=== PATIENT | female | born 1945 | race Hispanic/Latino ===

== ENCOUNTER 2019-09-23 22:49 | Inpatient (IN) | payer MEDICARE ==
[2019-09-23] MEDS ORDERED: THIAMINE 100 MG, FOLIC ACID 1 MG, MULTIPLE VITAMIN INJ, ADULT 10 ML in SODIUM CHLORIDE ... IV ONE (23:03)
[2019-09-23] MEDS ORDERED: KETOROLAC 30 MG/1 ML INJ IV ONE (23:05)
[2019-09-23] MEDS ORDERED: FAMOTIDINE 20 MG/2 ML INJ IV ONE (23:05)
--- NOTE | 2019-09-23 23:19 | Emergency Department Report ---
ED Fall HPI - General Chief Complaint: Neck Pain/Injury Stated Complaint: FALL Time Seen by Provider: 09/23/19 22:54 Source: patient, EMS Mode of arrival: Stretcher Limitations: Other (EtOH) - History of Present Illness Initial Comments: 74-year-old female with history of degenerative bone disease presents to the hospital with fall injury. Patient admits to alcohol all day since 2pm. She got out of the car, tripped and fell landing on right side. Patient is unsure if she passed out. She complains of neck pain and right shoulder pain that is moderate in intensity, constant, worse with palpation and movement. Pt has right shoulder pain x 3 days. It is unclear if there was an injury prior to today. Pt denies daily etoh intake. - Related Data Previous Rx's Medication Instructions Recorded Last Taken Type Ibuprofen [Motrin] 600 mg PO Q8H PRN #20 tablet 09/24/19 Unknown Rx Allergies Allergy/AdvReac Type Severity Reaction Status Date / Time codeine Allergy Severe Anaphylaxis Verified 09/24/19 02:27 propoxyphene [From Darvon] Allergy Severe Anaphylaxis Verified 09/24/19 02:28 lidocaine Allergy Anaphylaxis Verified 09/24/19 02:28 ED Review of Systems ROS: Stated complaint: FALL Other details as noted in HPI Comment: All other systems reviewed and negative ED Past Medical Hx - Medications Home Medications: Home Medications Medication Instructions Recorded Confirmed Last Taken Type Ibuprofen [Motrin] 600 mg PO Q8H PRN #20 tablet 09/24/19 Unknown Rx ED Physical Exam - General Limitations: Other - Other Other exam information: General: No acute distress Head: Atraumatic Eyes: normal appearance ENT: Moist mucous membranes Neck: Normal appearance, diffuse tenderness, intoxicated c-collar continued until imaging Chest: Clear to auscultation bilaterally, right-sided chest wall tenderness without crepitus CV: Regular rate and rhythm Abdomen: Soft, normal bowel sounds, nontender, nondistended, no rebound or guarding Back: Normal inspection, diffuse lumbar tenderness including midline. Extremity: No pelvic pain. Full range of motion of bilateral hips, knee, and ankle. Positive pain to right shoulder area with limited movement secondary to pain. 2+ radial pulse and intact distal sensation. Right wrist pain with palpation, no deformity Neuro: Alert O x 3, no facial asymmetry, speech clear but mildly slurred due to etoh, no gross motor sensory deficit Psych: Appropriate behavior, etoh intoxication Skin: No rash ED Course Vital Signs 09/23/19 09/24/19 09/24/19 23:05 00:28 01:44 Temperature 98.2 F Pulse Rate 71 68 64 Pulse Rate [ Intra-Procedure ] Pulse Rate [ Post-Procedure] Pulse Rate [Pre -Procedure] Respiratory 17 15 16 Rate Respiratory Rate [Intra- Procedure] Respiratory Rate [Post- Procedure] Respiratory Rate [Pre- Procedure] Blood Pressure [Intra- Procedure] Blood Pressure 149/54 115/52 133/60 [Left] Blood Pressure [Post-Procedure ] Blood Pressure [Pre-Procedure] O2 Sat by Pulse 98 98 98 Oximetry O2 Sat by Pulse Oximetry [ Intra-Procedure ] O2 Sat by Pulse Oximetry [Post -Procedure] O2 Sat by Pulse Oximetry [Pre- Procedure] 09/24/19 09/24/19 09/24/19 03:05 03:08 03:15 Temperature Pulse Rate 76 Pulse Rate [ 61 Intra-Procedure ] Pulse Rate [ 78 Post-Procedure] Pulse Rate [Pre 76 -Procedure] Respiratory 12 Rate Respiratory 16 Rate [Intra- Procedure] Respiratory 13 Rate [Post- Procedure] Respiratory 12 Rate [Pre- Procedure] Blood Pressure 179/77 [Intra- Procedure] Blood Pressure 141/63 [Left] Blood Pressure 166/74 [Post-Procedure ] Blood Pressure 141/63 [Pre-Procedure] O2 Sat by Pulse 100 Oximetry O2 Sat by Pulse 100 Oximetry [ Intra-Procedure ] O2 Sat by Pulse 100 Oximetry [Post -Procedure] O2 Sat by Pulse 100 Oximetry [Pre- Procedure] 09/24/19 09/24/19 09/24/19 03:25 03:40 04:30 Temperature Pulse Rate 61 Pulse Rate [ Intra-Procedure ] Pulse Rate [ 79 67 Post-Procedure] Pulse Rate [Pre -Procedure] Respiratory 14 Rate Respiratory Rate [Intra- Procedure] Respiratory 18 15 Rate [Post- Procedure] Respiratory Rate [Pre- Procedure] Blood Pressure [Intra- Procedure] Blood Pressure 131/61 [Left] Blood Pressure 136/59 163/58 [Post-Procedure ] Blood Pressure [Pre-Procedure] O2 Sat by Pulse 99 Oximetry O2 Sat by Pulse Oximetry [ Intra-Procedure ] O2 Sat by Pulse 100 100 Oximetry [Post -Procedure] O2 Sat by Pulse Oximetry [Pre- Procedure] - Consultations Consultation #1: 09/24/19 02:[address] surgeon [address] Reynoso who recommends improving fracture segment alignment then placed in an immobilizer. Patient will need outpatient follow-up for possible surgery. ED Medical Decision Making - Lab Data Result diagrams: 09/23/19 23:09 09/23/19 23:09 Lab Results 09/23/19 09/23/19 09/23/19 Range/Units 23:09 23:09 23:09 WBC 8.7 (4.5-11.0) K/mm3 RBC 4.72 (3.65-5.03) M/mm3 Hgb 15.6 H (10.1-14.3) gm/dl Hct 47.5 H (30.3-42.9) % MCV 101 H (79-97) fl MCH 33 H (28-32) pg MCHC 33 (30-34) % RDW 13.6 (13.2-15.2) % Plt Count 255 (140-440) K/mm3 Lymph % (Auto) 32.6 (13.4-35.0) % [place] % (Auto) 5.6 (0.0-7.3) % Eos % (Auto) 0.3 (0.0-4.3) % Baso % (Auto) 0.5 (0.0-1.8) % Lymph # 2.8 (1.2-5.4) K/mm3 [place] # 0.5 (0.0-0.8) K/mm3 Eos # 0.0 (0.0-0.4) K/mm3 Baso # 0.0 (0.0-0.1) K/mm3 Seg Neutrophils % 61.0 (40.0-70.0) % Seg Neutrophils # 5.3 (1.8-7.7) K/mm3 Sodium 134 L (137-145) mmol/L Potassium 3.9 (3.6-5.0) mmol/L Chloride 100.5 (98-107) mmol/L Carbon Dioxide 15 L (22-30) mmol/L Anion Gap 22 mmol/L BUN 9 (7-17) mg/dL Creatinine 0.8 (0.7-1.2) mg/dL Estimated GFR > 60 ml/min BUN/Creatinine Ratio 11 % Glucose 118 H (65-100) mg/dL POC Glucose (70-105) Calcium 9.3 (8.4-10.2) mg/dL Magnesium 2.30 (1.7-2.3) mg/dL Total Bilirubin 0.20 (0.1-1.2) mg/dL AST 32 (5-40) units/L ALT 16 (7-56) units/L Alkaline Phosphatase 82 (35-129) units/L Total Protein 8.5 H (6.3-8.2) g/dL Albumin 4.6 (3.9-5) g/dL Albumin/Globulin Ratio 1.2 % Plasma/Serum Alcohol 0.30 H (0-0.07) % 09/23/ Range/Units 23:21 WBC (4.5-11.0) K/mm3 RBC (3.65-5.03) M/mm3 Hgb (10.1-14.3) gm/dl Hct (30.3-42.9) % MCV (79-97) fl MCH (28-32) pg MCHC (30-34) % RDW (13.2-15.2) % Plt Count (140-440) K/mm3 Lymph % (Auto) (13.4-35.0) % [place] % (Auto) (0.0-7.3) % Eos % (Auto) (0.0-4.3) % Baso % (Auto) (0.0-1.8) % Lymph # (1.2-5.4) K/mm3 [place] # (0.0-0.8) K/mm3 Eos # (0.0-0.4) K/mm3 Baso # (0.0-0.1) K/mm3 Seg Neutrophils % (40.0-70.0) % Seg Neutrophils # (1.8-7.7) K/mm3 Sodium (137-145) mmol/L Potassium (3.6-5.0) mmol/L Chloride (98-107) mmol/L Carbon Dioxide (22-30) mmol/L Anion Gap mmol/L BUN (7-17) mg/dL Creatinine (0.7-1.2) mg/dL Estimated GFR ml/min BUN/Creatinine Ratio % Glucose (65-100) mg/dL POC Glucose 123 H (70-105) Calcium (8.4-10.2) mg/dL Magnesium (1.7-2.3) mg/dL Total Bilirubin (0.1-1.2) mg/dL AST (5-40) units/L ALT (7-56) units/L Alkaline Phosphatase (35-129) units/L Total Protein (6.3-8.2) g/dL Albumin (3.9-5) g/dL Albumin/Globulin Ratio % Plasma/Serum Alcohol (0-0.07) % - Radiology Data Radiology results: report reviewed EXAMINATION: Right shoulder radiograph, one view, 09/23/2019 CLINICAL INFORMATION: Right shoulder pain after fall COMPARISON: None. FINDINGS: There is a displaced angulated fracture through the right humeral neck. IMPRESSION: Displaced right humeral neck fracture. Examination: CT of the head without contrast Clinical information: Fall. Trauma. Comparison: None Technical: Multiple axial CT images of the head were obtained without intravenous contrast. Sagittal and coronal reformats were obtained. All CTs at this facility utilize dose reduction techniques including automated exposure control, iterative reconstruction and weight based dosing when appropriate to reduce patient radiation dose to as low as reasonable achievable. Findings: There is no CT evidence of acute intracranial hemorrhage or large territorial infarct. Confluent regions of hypodensity are noted within the periventricular white matter. The ventricular system is normal in size. No extra-axial fluid collection is identified. Evaluation of the calvarium demonstrates no evidence of acute calvarial abnormality. There is complete op acification of the left maxillary sinus. Impression: 1. No CT evidence of acute intracranial process. 2. Changes associated with chronic small vessel ischemic disease. Examination: CT of the cervical spine without contrast, 09/24/2019 Clinical information: Fall. Trauma. Comparison: None Technical: Multiple axial CT images of the cervical spine were obtained without intravenous contrast. Sagittal and coronal reformats were obtained. All CTs at this facility utilize dose reduction techniques including automated exposure control, iterative reconstruction and weight based dosing when appropriate to reduce patient radiation dose to as low as reasonable achievable. Findings: There is normal alignment of the cervical vertebral bodies. Mild to moderate multilevel bony degenerative change is noted. There is degenerative space narrowing at the C5-C6 level. Vertebral body height appears well maintained. Limited imaging of the lung apices are clear. Impression: 1. No CT evidence of acute bony abnormality of the cervical spine. 2. Mild to moderate bony degenerative change. CT chest without contrast, 09/24/2019 Clinical information: Chest pain after fall. Right rib pain. Technical: Multiple axial CT images of the chest were acquired without intravenous contrast. Sagittal and coronal reformats were obtained. All CTs at this facility utilized dose reduction techniques including automated exposure control, iterative reconstruction and weight based dosing w hen appropriate to reduce patient radiation dose to as low as reasonably achievable. Comparison: None Findings: The heart is normal in size. The thoracic aorta appears normal in caliber with scattered atherosclerotic calcifications. Evaluation of the lung parenchyma demonstrates no focal airspace consolidation, pleural effusion or pneumothorax. Limited imaging of the upper abdomen demonstrates no evidence of acute abnormality. There has been previous cholecystectomy. Evaluation of bony structures demonstrates a comminuted fracture through the right humeral neck, incompletely visualized. Evaluation of soft tissue structures demonstrates no acute soft tissue abnormality. Impression: 1. Comminuted right humeral neck fracture Examination: CT of the lumbar spine without contrast, 09/24/2019 Clinical information: Fall. Comparison: None Technical: Multiple axial CT images of the lumbar spine were obtained without intravenous contrast. Sagittal and coronal reformats were obtained. All CTs at this facility utilize dose reduction techniques including automated exposure control, iterative reconstruction and weight based dosing when appropriate to reduce patient radiation dose to as low as reasonable achievable. Findings: There is normal alignment of the lumbar vertebral bodies. There is mild compression deformity of the L5 vertebral body. This is age indeterminate. The bilateral SI joints appear grossly normal. Limited visualization of abdominopelvic contents demonstrates no definitive evidence of acute abnormality. Impression: 1. Minimal compression deformity of the L5 vertebral body. Please correlate with patient's clinical circumstances and point tenderness, given that the chronicity of this finding is indeterminate. EXAMINATION: Right shoulder radiograph, one view, 09/24/2019 CLINICAL INFORMATION: Right shoulder fracture. Post reduction evaluation. COMPARISON: Right shoulder radiograph, 09/23/2019 FINDINGS: There has been moderate interval reduction of right humeral neck fracture with fracture components projecting in a more anatomic alignment. EXAMINATION: Right wrist radiograph, one view, 09/24/2019 CLINICAL INFORMATION: History of fall. Trauma. COMPARISON: Right shoulder radiograph, 09/23/2019 FINDINGS: Evaluation is limited due to limited range of motion. One view of the left wrist demonstrates no evidence of acute bony fracture or focal soft tissue swelling. - Medical Decision Making lumbar fxt with unknown chronicity Humerus fracture with adequate reduction of fracture segment in the ED. Case discussed with orthopedic surgeon Patient placed in shoulder immobilizer and outpatient referral to orthopedic will be provided - Differential Diagnosis fxt, contusion, sprain Critical Care Time: No Critical care attestation.: If time is entered above; I have spent that time in minutes in the direct care of this critically ill patient, excluding procedure time. ED Disposition Clinical Impression: Alcohol intoxication, Compression fracture of L5 vertebra Proximal humerus fracture Qualifiers: Encounter type: initial encounter Fracture type: closed Fracture alignment: displaced Laterality: right Disposition: TO HOME OR SELFCARE Is pt being admited?: No Does the pt Need Aspirin: No Condition: Stable Instructions: Arm Fracture in Adults (ED), Thoracolumbar Fracture (ED), Alcohol Intoxication (ED) Additional Instructions: Take the medication as prescribed. Follow-up with your doctor or doctor/clinic provided. Return if symptoms worsen as indicated by your discharge instructions. Prescriptions: Ibuprofen [Motrin] 600 mg PO Q8H PRN #20 tablet PRN Reason: Pain Referrals: PRIMARY CAREMD [Primary Care Provider] - 3-5 Days LEORA REYNOSO MD [Staff Physician] - 3-5 Days
[2019-09-23 23:39] LABS: Basophils % (Auto) 0.5 % (0.0-1.8); Eosinophils % (Auto) 0.3 % (0.0-4.3); Hematocrit 47.5 % (30.3-42.9); Hemoglobin 15.6 gm/dl (10.1-14.3); Lymphocytes # (Auto) 2.8 K/mm3 (1.2-5.4); Lymphocytes % (Auto) 32.6 % (13.4-35.0); Mean Corpuscular HGB Conc 33 % (30-34); Mean Corpuscular Volume 101 fl (79-97); Monocytes # (Auto) 0.5 K/mm3 (0.0-0.8); Monocytes % (Auto) 5.6 % (0.0-7.3); Platelet Count 255 K/mm3 (140-440); Red Blood Count 4.72 M/mm3 (3.65-5.03); Red Cell Distribution Width 13.6 % (13.2-15.2)
--- NOTE | 2019-09-23 23:50 | XRay Report ---
EXAMINATION: Right shoulder radiograph, one view, 09/23/2019 CLINICAL INFORMATION: Right shoulder pain after fall COMPARISON: None. FINDINGS: There is a displaced angulated fracture through the right humeral neck. IMPRESSION: Displaced right humeral neck fracture. Signer Name: Margie Majano MD Signed: 09/23/2019 11:46 PM Workstation Name: [id number]
[2019-09-24 00:18] LABS: Alanine Aminotransferase 16 units/L (7-56); Albumin 4.6 g/dL (3.9-5); BUN/Creatinine Ratio 11; Blood Urea Nitrogen 9 mg/dL (7-17); Calcium 9.3 mg/dL (8.4-10.2); Hemolysis Index 58
--- NOTE | 2019-09-24 01:41 | Cat Scan Report ---
Examination: CT of the head without contrast Clinical information: Fall. Trauma. Comparison: None Technical: Multiple axial CT images of the head were obtained without intravenous contrast. Sagittal and coronal reformats were obtained. All CTs at this facility utilize dose reduction techniques inc luding automated exposure control, iterative reconstruction and weight based dosing when appropriate to reduce patient radiation dose to as low as reasonable achievable. Findings: There is no CT evidence of acute intracranial hemorrhage or large territorial infarct. Conf luent regions of hypodensity are noted within the periventricular white matter. The ventricular syste m is normal in size. No extra-axial fluid collection is identified. Evaluation of the calvarium demonstrates no evidence of acute calvarial abnormality. There is complet e opacification of the left maxillary sinus. Impression: 1. No CT evidence of acute intracranial process. 2. Changes associated with chronic small vessel ischemic disease. Signer Name: Margie Majano MD Signed: 09/24/2019 1:37 AM Workstation Name: [id number]
--- NOTE | 2019-09-24 01:46 | Cat Scan Report ---
Examination: CT of the cervical spine without contrast, 09/24/2019 Clinical information: Fall. Trauma. Comparison: None Technical: Multiple axial CT images of the cervical spine were obtained without intravenous contrast. Sagittal and coronal reformats were obtained. All CTs at this facility utilize dose reduction techn iques including automated exposure control, iterative reconstruction and weight based dosing when helga ropriate to reduce patient radiation dose to as low as reasonable achievable. Findings: There is normal alignment of the cervical vertebral bodies. Mild to moderate multilevel bony degenera tive change is noted. There is degenerative space narrowing at the C5-C6 level. Vertebral body height appears well maintained. Limited imaging of the lung apices are clear. Impression: 1. No CT evidence of acute bony abnormality of the cervical spine. 2. Mild to moderate bony degenerative change. Signer Name: Margie Majano MD Signed: 09/24/2019 1:42 AM Workstation Name: [id number]
--- NOTE | 2019-09-24 01:50 | Cat Scan Report ---
Examination: CT of the lumbar spine without contrast, 09/24/2019 Clinical information: Fall. Comparison: None Technical: Multiple axial CT images of the lumbar spine were obtained without intravenous contrast. S agittal and coronal reformats were obtained. All CTs at this facility utilize dose reduction techniq ues including automated exposure control, iterative reconstruction and weight based dosing when appro priate to reduce patient radiation dose to as low as reasonable achievable. Findings: There is normal alignment of the lumbar vertebral bodies. There is mild compression deformity of the L5 vertebral body. This is age indeterminate. The bilateral SI joints appear grossly normal. Limited visualization of abdominopelvic contents demonstrates no definitive evidence of acute abnorma lity. Impression: 1. Minimal compression deformity of the L5 vertebral body. Please correlate with patient's clinical circumstances and point tenderness, given that the chronicity of this finding is indeterminate. Signer Name: Margie Majano MD Signed: 09/24/2019 1:45 AM Workstation Name: [id number]
--- NOTE | 2019-09-24 01:54 | Cat Scan Report ---
CT chest without contrast, 09/24/2019 Clinical information: Chest pain after fall. Right rib pain. Technical: Multiple axial CT images of the chest were acquired without intravenous contrast. Sagittal and coronal reformats were obtained. All CTs at this facility utilized dose reduction techniques inc luding automated exposure control, iterative reconstruction and weight based dosing when appropriate to reduce patient radiation dose to as low as reasonably achievable. Comparison: None Findings: The heart is normal in size. The thoracic aorta appears normal in caliber with scattered at herosclerotic calcifications. Evaluation of the lung parenchyma demonstrates no focal airspace consol idation, pleural effusion or pneumothorax. Limited imaging of the upper abdomen demonstrates no evidence of acute abnormality. There has been pr evious cholecystectomy. Evaluation of bony structures demonstrates a comminuted fracture through the right humeral neck, inco mpletely visualized. Evaluation of soft tissue structures demonstrates no acute soft tissue abnormali ty. Impression: 1. Comminuted right humeral neck fracture. Signer Name: Margie Majano MD Signed: 09/24/2019 1:50 AM Workstation Name: [email or web address]
[2019-09-24] MEDS ORDERED: ETOMIDATE 20 MG/10 ML INJ IV ONE (02:40)
--- NOTE | 2019-09-24 03:49 | XRay Report ---
EXAMINATION: Right wrist radiograph, one view, 09/24/2019 CLINICAL INFORMATION: History of fall. Trauma. COMPARISON: Right shoulder radiograph, 09/23/2019 FINDINGS: Evaluation is limited due to limited range of motion. One view of the left wrist demonstrat es no evidence of acute bony fracture or focal soft tissue swelling. Signer Name: Margie Majano MD Signed: 09/24/2019 3:44 AM Workstation Name: [id number]
--- NOTE | 2019-09-24 03:50 | XRay Report ---
EXAMINATION: Right shoulder radiograph, one view, 09/24/2019 CLINICAL INFORMATION: Right shoulder fracture. Post reduction evaluation. COMPARISON: Right shoulder radiograph, 09/23/2019 FINDINGS: There has been moderate interval reduction of right humeral neck fracture with fracture com ponents projecting in a more anatomic alignment. Signer Name: Margie Majano MD Signed: 09/24/2019 3:45 AM Workstation Name: [id number]
[2019-09-24 07:51] LABS: INR 0.95 (0.87-1.13)
[2019-09-24 07:52] LABS: Creatine Kinase MB 2.3 ng/mL (0.0-4.0); Partial Thromboplastin Time 24.9 Sec. (24.2-36.6)
[2019-09-24] MEDS ORDERED: THIAMINE 100 MG, FOLIC ACID 1 MG, MULTIPLE VITAMIN INJ, ADULT 10 ML in SODIUM CHLORIDE ... IV ONE (08:00)
[2019-09-24] MEDS ORDERED: LORazepam 2 MG/ML VIAL ONE (08:12)
--- NOTE | 2019-09-24 08:14 | Emergency Department Report ---
Norma Doc - Documentation Documentation: I saw and examined this 74-year-old female. I've come to the conclusion that s he would be best off admitted. She tells me that she has complete amnesia regarding her fall. She was even unaware that she had a broken shoulder although she was having some discomfort laying on the respective side. She states that she had a syncopal episode about 12 years ago without apparent cause. She has no known history of cardiovascular disease. Physical exam General appearance in no distress, awake alert and oriented 4 HEENT no sclera icterus oral mucosa is moist Neck supple and nontender Cardiovascular S1-S2 regular rate without murmur GI soft nontender no gross distention or organomegaly Musculoskeletal exam fracture of proximal humerus with mild swelling shoulder Neurological exam cranial nerves II-12 are intact no gross motor sensory deficit Skin intact and grossly unremarkable Laboratories reviewed Patient had a CO2 of 15. I added a lactic acid level. He was mildly elevated at 2.1. Blood cultures have been ordered. An EKG has been ordered. Banana bag and additional IV fluids. Impression Lactic acidosis, Alcoholic ketoacidosis Syncope Fracture of the proximal humerus Alcohol abuse and dependency Plan Patient will be admitted observation status to the hospitalist service
[2019-09-24] MEDS ORDERED: ASPIRIN 325 MG TAB PO ONE (08:39)
--- NOTE | 2019-09-24 08:50 | History and Physical Report ---
History of Present Illness Date of examination: 09/24/19 Date of admission: 09/24/19 Chief complaint: Status post fall/injury right shoulder History of present illness: 74-year-old female patient with significant past medical history of degenerative bone disease, chronic alcohol use tripped and fell last night and she was getting out of car and sustained a right shoulder injury. Patient has been taking alcohol the whole of yesterday. Patient does not remember that she lost consciousness At the time of my evaluation patient is alert and awake responding appropriately Patient denies any headache or dizziness Denies chronic alcohol use,Patient workup is consistent with right humerus fracture. Patient's alcohol level is high Past History Past Medical History: No medical history Past Surgical History: Other (hip surgery) Social history: lives with family, smoking, alcohol abuse. denies: prescription drug abuse Family history: hypertension Medications and Allergies Allergies Allergy/AdvReac Type Severity Reaction Status Date / Time codeine Allergy Severe Anaphylaxis Verified 09/24/19 02:27 propoxyphene [From Darvon] Allergy Severe Anaphylaxis Verified 09/24/19 02:28 lidocaine Allergy Anaphylaxis Verified 09/24/19 02:28 Home Medications Medication Instructions Recorded Confirmed Last Taken Type Ibuprofen [Motrin] 600 mg PO Q8H PRN #20 tablet 09/24/19 Unknown Rx Active Meds: Active Medications Thiamine HCl 100 mg/ Folic Acid 1 mg/ Multivitamins/Minerals 10 ml/ Sodium Chloride 1,011.2 mls @ 250 mls/hr IV ONCE ONE Stop: 09/24/19 12:02 Review of Systems Constitutional: no weight loss, no weight gain, no anorexia, no fatigue Ears, nose, mouth and throat: no nasal congestion, no nasal discharge Cardiovascular: lightheadedness, no chest pain, no orthopnea, no palpitations Respiratory: no cough with sputum, no hemoptysis Gastrointestinal: no abdominal pain, no nausea, no vomiting Genitourinary Female: no flank pain, no dysuria Integumentary: no rash, no pruritis Neurological: weakness, other, no numbness, no tingling, no seizures Psychiatric: no anxiety, no depression Endocrine: no cold intolerance, no heat intolerance Hematologic/Lymphatic: no easy bruising, no easy bleeding Allergic/Immunologic: no urticaria, no allergic rhinitis Exam - Constitutional Vitals: Temp Pulse Resp BP Pulse Ox 98.2 F 61 14 131/61 99 09/23/19 23:05 09/24/19 04:30 09/24/19 04:30 09/24/19 04:30 09/24/19 04:30 General appearance: Present: no acute distress, well-nourished - EENT Eyes: Present: PERRL, EOM intact ENT: hearing intact, clear oral mucosa - Neck Neck: Present: supple, normal ROM - Respiratory Respiratory effort: normal Respiratory: bilateral: diminished, negative: rales, rhonchi, wheezing - Cardiovascular Rhythm: regular Heart Sounds: Present: S1 & S2 - Extremities Extremities: No edema, abnormal (right humerus fracture in sling) - Abdominal General gastrointestinal: Present: soft, non-tender, non-distended, normal bowel sounds - Integumentary Integumentary: Present: clear, warm - Musculoskeletal Musculoskeletal: strength equal bilaterally, generalized weakness - Psychiatric Psychiatric: appropriate mood/affect, cooperative - Neurologic Neurologic: CNII-XII intact, moves all extremities Results - Labs CBC & Chem 7: 09/23/19 23:09 09/23/19 23:09 Labs: Abnormal lab results 09/23/19 09/23/19 09/23/19 Range/Units 23:09 23:09 23:09 Hgb 15.6 H (10.1-14.3) gm/dl Hct 47.5 H (30.3-42.9) % MCV 101 H (79-97) fl MCH 33 H (28-32) pg Sodium 134 L (137-145) mmol/L Carbon Dioxide 15 L (22-30) mmol/L Glucose 118 H (65-100) mg/dL POC Glucose (70-105) Lactic Acid (0.7-2.0) mmol/L Total Protein 8.5 H (6.3-8.2) g/dL Plasma/Serum Alcohol 0.30 H (0-0.07) % 09/23/19 09/24/19 Range/Units 23:21 07:13 Hgb (10.1-14.3) gm/dl Hct (30.3-42.9) % MCV (79-97) fl MCH (28-32) pg Sodium (137-145) mmol/L Carbon Dioxide (22-30) mmol/L Glucose (65-100) mg/dL POC Glucose 123 H (70-105) Lactic Acid 2.10 H* (0.7-2.0) mmol/L Total Protein (6.3-8.2) g/dL Plasma/Serum Alcohol (0-0.07) % Assessment and Plan --History of fall; Mechanical fall versus, altered level of consciousness Due to alcohol intoxication, Fall precautions, supportive care --Fractured right humerus; immobilization Pain Medications, orthopedic consult -- lactic acidosis ; resolved --Alcoho l intoxication; IV fluids, thiamine folic acid Strongly advised to quit alcohol intake Patient verbalized understanding --Alcohol withdrawal symptoms; Monitor for joint symptoms Initiate CIWA protocol --DVT prophylaxis; Lovenox Monitor closely and adjust management as needed Plan of care is reviewed for the patient and her nurse Follow-up the evaluation and recommendations
[2019-09-24] MEDS ORDERED: hydrALAZINE 20 MG/1 ML INJ IV PRN (09:30)
[2019-09-24] MEDS ORDERED: ASPIRIN 325 MG TAB ONE (09:31)
[2019-09-24] MEDS: MORPHINE 2 MG/1 ML INJ IV PRN ×2 (11:03→19:15)
[2019-09-24] MEDS: FOLIC ACID 1 MG in SODIUM CHLORIDE 0.9% 50 ML IV SCH (11:04)
[2019-09-24] MEDS: THIAMINE 100 MG in SODIUM CHLORIDE 0.9% 50 ML IV SCH (11:04)
[2019-09-24] MEDS: PANTOPRAZOLE 40 MG INJ IV SCH (11:04)
[2019-09-24] MEDS: ENOXAPARIN 40 MG/0.4 ML INJ SUB-Q SCH (21:27)
[2019-09-24] MEDS: SODIUM CHLORIDE 0.9% 1000 ML 1,000 ML IV SCH (22:43)
[2019-09-25] MEDS: MORPHINE 2 MG/1 ML INJ IV PRN ×4 (02:18→21:52)
[2019-09-25] MEDS: FOLIC ACID 1 MG in SODIUM CHLORIDE 0.9% 50 ML IV SCH (10:30)
[2019-09-25] MEDS: PANTOPRAZOLE 40 MG INJ IV SCH (10:30)
[2019-09-25] MEDS: THIAMINE 100 MG in SODIUM CHLORIDE 0.9% 50 ML IV SCH (11:03)
--- NOTE | 2019-09-25 14:47 | Progress Note ---
Assessment and Plan Assessment and plan: 74-year-old female patient with no significant past medical history was admitted through emergency room with history of fall Noted to have alcohol intoxication and lactic acidosis which resolved, patient s ustained a right humerus fracture, immobilized insulin Pending evaluation by orthopedic surgeon --Fractured right humerus; immobilization Pain Medications, pending orthopedic consult --History of fall; Mechanical fall versus, altered level of consciousness Due to alcohol intoxication, Fall precautions -- lactic acidosis ; resolved --Alcoho l intoxication; IV fluids, thiamine folic acid Strongly advised to quit alcohol intake Patient verbalized understanding --Alcohol withdrawal symptoms; Monitor for withdrawl symptoms Initiate CIWA protocol --DVT prophylaxis; Lovenox Monitor closely and adjust management as needed Follow-up orthopedic evaluation and recommendations Plan of care is reviewed with the patient and her nurse History Interval history: Patient feels slightly better complaints of pain in the right shoulder Pending ortho evaluation vital signs reviewed Hospitalist Physical - Constitutional Vitals: Temp Pulse Resp BP Pulse Ox 98.8 F 69 20 172/57 98 09/25/19 12:57 09/25/19 12:57 09/25/19 12:57 09/25/19 12:57 09/25/19 12:57 General appearance: Present: no acute distress, well-nourished - EENT Eyes: Present: PERRL, EOM intact - Neck Neck: Present: supple, normal ROM - Respiratory Respiratory effort: normal Respiratory: bilateral: diminished, negative: rales, rhonchi, wheezing - Cardiovascular Rhythm: regular Heart Sounds: Present: S1 & S2 - Extremities Extremities: no ischemia, No edema - Abdominal General gastrointestinal: soft, non-tender, non-distended, normal bowel sounds - Integumentary Integumentary: Present: clear, warm - Psychiatric Psychiatric: appropriate mood/affect, cooperative - Neurologic Neurologic: CNII-XII intact, moves all extremities Results - Labs CBC & Chem 7: 09/23/19 23:09 09/23/19 23:09 Labs: Laboratory Last Values WBC 8.7 K/mm3 (4.5-11.0) 09/23/19 23:09 RBC 4.72 M/mm3 (3.65-5.03) 09/23/19 23:09 Hgb 15.6 gm/dl (10.1-14.3) H 09/23/19 23:09 Hct 47.5 % (30.3-42.9) H 09/23/19 23:09 MCV 101 fl (79-97) H 09/23/19 23:09 MCH 33 pg (28-32) H 09/23/19 23:09 MCHC 33 % (30-34) 09/23/19 23:09 RDW 13.6 % (13.2-15.2) 09/23/19 23:09 Plt Count 255 K/mm3 (140-440) 09/23/19 23:09 Lymph % (Auto) 32.6 % (13.4-35.0) 09/23/19 23:09 [place] % (Auto) 5.6 % (0.0-7.3) 09/23/19 23:09 Eos % (Auto) 0.3 % (0.0-4.3) 09/23/19 23:09 Baso % (Auto) 0.5 % (0.0-1.8) 09/23/19 23:09 Lymph # 2.8 K/mm3 (1.2-5.4) 09/23/19 23:09 [place] # 0.5 K/mm3 (0.0-0.8) 09/23/19 23:09 Eos # 0.0 K/mm3 (0.0-0.4) 09/23/19 23:09 Baso # 0.0 K/mm3 (0.0-0.1) 09/23/19 23:09 Seg Neutrophils % 61.0 % (40.0-70.0) 09/23/19 23:09 Seg Neutrophils # 5.3 K/mm3 (1.8-7.7) 09/23/19 23:09 PT 12.6 Sec. (12.2-14.9) 09/24/19 07:13 INR 0.95 (0.87-1.13) 09/24/19 07:13 APTT 24.9 Sec. (24.2-36.6) 09/24/19 07:13 Sodium 134 mmol/L (137-145) L 09/23/19 23:09 Potassium 3.9 mmol/L (3.6-5.0) 09/23/19 23:09 Chloride 100.5 mmol/L (98-107) 09/23/19 23:09 Carbon Dioxide 15 mmol/L (22-30) L 09/23/19 23:09 Anion Gap 22 mmol/L 09/23/19 23:09 BUN 9 mg/dL (7-17) 09/23/19 23:09 Creatinine 0.8 mg/dL (0.7-1.2) 09/23/19 23:09 Estimated GFR > 60 ml/min 09/23/19 23:09 BUN/Creatinine Ratio 11 % 09/23/19 23:09 Glucose 118 mg/dL (65-100) H 09/23/19 23:09 POC Glucose 123 (70-105) H 09/23/19 23:21 Ketones Quantitative Negative (Negative) 09/24/19 07:13 Lactic Acid 1.90 mmol/L (0.7-2.0) 09/24/19 08:11 Calcium 9.3 mg/dL (8.4-10.2) 09/23/19 23:09 Magnesium 1.90 mg/dL (1.7-2.3) 09/24/19 07:13 Total Bilirubin 0.20 mg/dL (0.1-1.2) 09/23/19 23:09 AST 32 units/L (5-40) 09/23/19 23:09 ALT 16 units/L (7-56) 09/23/19 23:09 Alkaline Phosphatase 82 units/L (35-129) 09/23/19 23:09 Ammonia 35.0 umol/L (25-60) 09/24/19 07:13 Total Creatine Kinase 115 units/L (30-135) 09/24/19 07:13 CK-MB (CK-2) 2.3 ng/mL (0.0-4.0) 09/24/19 07:13 CK-MB (CK-2) Rel Index 2.0 (0-4) 09/24/19 07:13 Total Protein 8.5 g/dL (6.3-8.2) H 09/23/19 23:09 Albumin 4.6 g/dL (3.9-5) 09/23/19 23:09 Albumin/Globulin Ratio 1.2 % 09/23/19 23:09 Lipase 39 units/L (13-60) 09/24/19 07:13 Plasma/Serum Alcohol 0.30 % (0-0.07) H 09/23/19 23:09 Active Medications - Current Medications Current Medications: Generic Name Dose Route Start Last Admin Trade Name Freq PRN Reason Stop Dose Admin Enoxaparin Sodium 40 mg 09/24/19 22:00 09/24/19 21:27 Enoxaparin SUB-Q 40 mg QDAY@2200 PRUDENCIO Administration Hydralazine HCl 10 mg 09/24/19 09:30 Apresoline IV Q4H PRN Hypertension Folic Acid 1 mg/ Sodium 50.2 mls @ 200.8 mls/hr 09/24/19 10:00 09/25/19 10:30 Chloride IV 200.8 mls/hr QDAY PRUDENCIO Administration Thiamine HCl 100 mg/ Sodium 51 mls @ 100 mls/hr 09/24/19 10:00 09/25/19 11:03 Chloride IV 100 mls/hr QDAY PRUDENCIO Administration Sodium Chloride 1,000 mls @ 75 mls/hr 09/24/19 15:30 09/24/19 22:43 Nacl 0.9% 1000 Ml IV 75 mls/hr DIRECT PRUDENCIO Administration Morphine Sulfate 2 mg 09/24/19 09:30 09/25/19 14:34 Morphine IV 2 mg Q4H PRN Administration Pain, Moderate (4-6) Pantoprazole Sodium 40 mg 09/24/19 10:00 09/25/19 10:30 Protonix IV 40 mg QDAY PRUDENCIO Administration
--- NOTE | 2019-09-25 14:51 | Consultation ---
History of Present Illness - [facility] Consult date: 09/25/19 Consult reason: fracture History of present illness: 74-year-old female who complains of right shoulder pain and swelling after a fall at home while intoxicated. She was seen in our emergency department where x-rays were obtained revealing a fracture separation right proximal humerus Past History Past Medical History: No medical history Past Surgical History: Other (hip surgery) Social history: lives with family, smoking, alcohol abuse. denies: prescription drug abuse Family history: hypertension Medications and Allergies Allergies Allergy/AdvReac Type Severity Reaction Status Date / Time codeine Allergy Severe Anaphylaxis Verified 09/24/19 02:27 propoxyphene [From Darvon] Allergy Severe Anaphylaxis Verified 09/24/19 02:28 lidocaine Allergy Anaphylaxis Verified 09/24/19 02:28 Home Medications Medication Instructions Recorded Confirmed Last Taken Type Ibuprofen [Motrin] 600 mg PO Q8H PRN #20 tablet 09/24/19 Unknown Rx Active Meds: Active Medications Enoxaparin Sodium (Enoxaparin) 40 mg SUB-Q QDAY@2200 [facility] Last Admin: 09/24/19 21:27 Dose: 40 mg Documented by: Hydralazine HCl (Apresoline) 10 mg IV Q4H PRN PRN Reason: Hypertension Folic Acid 1 mg/ Sodium (Chloride) 50.2 mls @ 200.8 mls/hr IV QDAY [facility] Last Admin: 09/25/19 10:30 Dose: 200.8 mls/hr Documented by: Thiamine HCl 100 mg/ Sodium (Chloride) 51 mls @ 100 mls/hr IV QDAY [facility] Last Admin: 09/25/19 11:03 Dose: 100 mls/hr Documented by: Sodium Chloride (Nacl 0.9% 1000 Ml) 1,000 mls @ 75 mls/hr IV DIRECT [facility] Last Admin: 09/24/19 22:43 Dose: 75 mls/hr Documented by: Morphine Sulfate (Morphine) 2 mg IV Q4H PRN PRN Reason: Pain, Moderate (4-6) Last Admin: 09/25/19 14:34 Dose: 2 mg Documented by: Pantoprazole Sodium (Protonix) 40 mg IV QDAY [facility] Last Admin: 09/25/19 10:30 Dose: 40 mg Documented by: Physical Examination - Physical exam Narrative exam: Significant musculoskeletal findings relates to the right upper extremity hair at the right shoulder she is noted to have moderate swelling there is tenderness on palpation decrease passive and active range of motion distal neurovascular status intact Eyes: PERRL ENT: Positive: clear oral mucosa Respiratory effort: normal Respiratory: bilateral: CTA Rhythm: regular Heart Sounds: Positive: S1 & S2 General gastrointestinal: Positive: soft, non-tender, non-distended, normal bowel sounds Integumentary: clear, warm, dry Neurologic: Positive: CNII-XII intact, moves all extremities, gait normal. Negative: focal deficits - Cervical Spine Neck pain: none Tenderness with palpation: none Full ROM: yes ROM: flexion: normal ROM: extension: normal ROM: rotation right: normal ROM: rotation left: normal ROM: lateral flexion right: normal ROM: lateral flexion left: normal - Lumbar Spine Back pain: none Tenderness with palpation: none Appearance: normal Full ROM: yes ROM: flexion: normal ROM: extension: normal ROM: rotation right: normal ROM: rotation left: normal ROM: lateral flexion right: normal ROM: lateral flexion left: normal Assessment and Plan Displaced right proximal humerus fracture Recommendations- patient can be discharged to home with follow-up in my office next week she will require operative fixation that can be done as an outpatient
--- NOTE | 2019-09-25 15:06 | Cat Scan Report ---
CT upper extrem RT wo con INDICATION: right proximal humerus fracture. TECHNIQUE: CT of the right shoulder without contrast. All CT scans at this location are performed using CT dose reduction for ALARA by means of automated exposure control. COMPARISON: Shoulder radiographs on 09/24/2019. FINDINGS: There is a comminuted fracture of the surgical neck of the right proximal humerus with about one half shaft width anterior displacement of the predominant distal fracture fragment as well as anterior ap ex angulation of the fracture. Multiple fracture pieces also extend into the greater and lesser tuber osities. There is a large quantity humeral joint effusion. There is no appreciable underlying osseous mass lesion. Rotator cuff muscle bulk appears largely normal, although the tendons are not well evaluated. Visualized portions of the right lung are clear. IMPRESSION: 1. Comminuted, displaced and angulated fracture of the surgical neck of the proximal right humerus wi th additional involvement of the greater and lesser tuberosities. Signer Name: Marcelo Hughes MD Signed: 09/25/2019 3:02 PM Workstation Name: [id number]
[2019-09-25] MEDS: ENOXAPARIN 40 MG/0.4 ML INJ SUB-Q SCH (21:52)
[2019-09-25] MEDS: SODIUM CHLORIDE 0.9% 1000 ML 1,000 ML IV SCH (21:53)
[2019-09-26] MEDS: FOLIC ACID 1 MG in SODIUM CHLORIDE 0.9% 50 ML IV SCH (09:20)
[2019-09-26] MEDS: PANTOPRAZOLE 40 MG TAB PO SCH (09:20)
[2019-09-26] MEDS: MORPHINE 2 MG/1 ML INJ IV PRN ×2 (09:40→21:42)
[2019-09-26] MEDS: THIAMINE 100 MG in SODIUM CHLORIDE 0.9% 50 ML IV SCH (09:40)
[2019-09-26] MEDS: SODIUM CHLORIDE 0.9% 1000 ML 1,000 ML IV SCH (16:02)
--- NOTE | 2019-09-26 16:30 | Discharge Summary ---
Providers - Providers Date of Admission: 09/24/19 08:14 Date of discharge: 09/26/19 Attending physician: MARGARITA MORAN 09/24/19 08:52 Consult to Physician [CONS] Routine Comment: called answ. service/ subhash Consulting Provider: LEORA MCKEON Physician Instructions: Reason For Exam: Displaced Rt humeral neck fracture Primary care physician: [employer] Hospitalization Condition: Stable Hospital course: 74-year-old female patient with no significant past medical history was admitted through emergency room with history of fall Noted to have alcohol intoxication and lactic acidosis which resolved, patient sustained a right humerus fracture, immobilized insulin Pending evaluation by orthopedic surgeon --Fractured right humerus; immobilization Pain Medications, pending orthopedic consult --History of fall; Mechanical fall versus, altered level of consciousness Due to alcohol intoxication, Fall precautions -- lactic acidosis ; resolved --Alcoho l intoxication; IV fluids, thiamine folic acid Strongly advised to quit alcohol intake Patient verbalized understanding --Alcohol withdrawal symptoms; Monitor for withdrawl symptoms Initiate CIWA protocol --DVT prophylaxis; Lovenox Monitor closely and adjust management as needed Follow-up orthopedic evaluation and recommendations Plan of care is reviewed with the patient and her nurse Disposition: DC-01 TO HOME OR SELFCARE Exam - Constitutional Vitals: Temp Pulse Resp BP Pulse Ox 98.5 F 75 18 134/46 98 09/26/19 12:53 09/26/19 12:53 09/26/19 12:53 09/26/19 12:53 09/26/19 12:53 Plan Follow up with: MOHAN MENARD MD [Primary Care Provider] - 3-5 Days LEORA MCKEON MD [Staff Physician] - 3-5 Days Prescriptions: Ibuprofen [Motrin] 600 mg PO Q8H PRN #20 tablet PRN Reason: Pain
--- NOTE | 2019-09-26 17:05 | Progress Note ---
Assessment and Plan Delirium Tremens-- Alcohol withdrawal symptoms present [facility] protocol Tremulous Fractured right humerus; immobilization Pain Medications, Orthopedic consult--appreciated For surgery as outpatient or as inpatient if she is not discharged by Saturday. History of fall; Mechanical fall versus, altered level of consciousness Due to alcohol intoxication, Fall precautions Lactic acidosis -resolved Alcohol intoxication; IV fluids, thiamine folic acid Strongly advised to quit alcohol intake Patient verbalized understanding Mental Health consult for Alcohol rehab DVT prophylaxis; Lovenox Monitor closely and adjust management as needed Orthopedic evaluation and recommendations appreciated Humerus Internal fixation hopefully on Saturday. Plan of care is reviewed with the patient and her nurse Subjective Date of service: 09/26/19 Principal diagnosis: Rt Humerus fracture,DT,s ,Etoh Dependence Interval history: 74-year-old female patient with no significant past medical history was admitted through emergency room with history of fall Noted to have alcohol intoxication and lactic acidosis which resolved, patient sustained a right humerus fracture, immobilized . Evaluation by orthopedic surgeon--done Tremulous.And shaking and nervous. - Objective - Constitutional Vitals: Vital Signs - 12hr 09/26/19 09/26/19 09/26/19 07:18 09:22 09:40 Temperature 98.6 F Pulse Rate 63 Pulse Rate [ Apical] Respiratory 18 20 Rate Blood Pressure 133/51 O2 Sat by Pulse 96 99 Oximetry 09/26/19 09/26/19 10:00 12:53 Temperature 98.5 F Pulse Rate 80 75 Pulse Rate [ 61 Apical] Respiratory 18 18 Rate Blood Pressure 134/46 O2 Sat by Pulse 99 98 Oximetry General appearance: Present: mild distress, well-nourished - EENT Eyes: PERRL, EOM intact ENT: hearing intact, clear oral mucosa Ears: bilateral: normal - Neck Neck: supple, normal ROM - Respiratory Respiratory effort: normal Respiratory: bilateral: CTA - Breasts Breasts: normal - Cardiovascular Heart rate: 78 Rhythm: regular Heart Sounds: Present: S1 & S2. Absent: gallop, rub Extremities: pulses intact, No edema, normal color, Full ROM - Gastrointestinal General gastrointestinal: Present: soft, non-tender, non-distended, normal bowel sounds Rectal Exam: deferred - Genitourinary Female genitourinary: normal - Integumentary Integumentary: clear, warm, dry - Musculoskeletal Musculoskeletal: 1, strength equal bilaterally - Neurologic Neurologic: moves all extremities - Psychiatric Psychiatric: appropriate mood/affect, intact judgment & insight, memory intact, agitated - Allied health notes Allied health notes reviewed: nursing, case management - Labs CBC & Chem 7: 09/23/19 23:09 09/23/19 23:09
[2019-09-26] MEDS: ENOXAPARIN 40 MG/0.4 ML INJ SUB-Q SCH (21:42)
[2019-09-27 04:44] LABS: Basophils # (Auto) 0.1 K/mm3 (0.0-0.1); Basophils % (Auto) 0.9 % (0.0-1.8); Eosinophils # (Auto) 0.1 K/mm3 (0.0-0.4); Eosinophils % (Auto) 1.2 % (0.0-4.3); Hematocrit 32.1 % (30.3-42.9); Hemoglobin 10.8 gm/dl (10.1-14.3); Lymphocytes # (Auto) 1.9 K/mm3 (1.2-5.4); Lymphocytes % (Auto) 26.8 % (13.4-35.0); Mean Corpuscular HGB Conc 34 % (30-34); Mean Corpuscular Volume 98 fl (79-97); Monocytes # (Auto) 0.7 K/mm3 (0.0-0.8); Monocytes % (Auto) 9.1 % (0.0-7.3); Platelet Count 190 K/mm3 (140-440); Red Blood Count 3.28 M/mm3 (3.65-5.03); Red Cell Distribution Width 13.5 % (13.2-15.2)
[2019-09-27 04:58] LABS: Alanine Aminotransferase 13 units/L (7-56); Albumin 2.9 g/dL (3.9-5); BUN/Creatinine Ratio 12; Blood Urea Nitrogen 6 mg/dL (7-17); Calcium 7.8 mg/dL (8.4-10.2); Hemolysis Index 3
[2019-09-27] MEDS: SODIUM CHLORIDE 0.9% 1000 ML 1,000 ML IV SCH (05:27)
[2019-09-27 08:00] VITALS: BP 135/56
[2019-09-27] MEDS: PANTOPRAZOLE 40 MG TAB PO SCH (09:16)
--- NOTE | 2019-09-27 09:56 | Discharge Summary ---
Providers - Providers Date of Admission: 09/24/19 08:14 Attending physician: RICHARD SAMAYOA MD 09/24/19 08:52 Consult to Physician [CONS] Routine Comment: called answ. 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 She also admitted to drinking alcohol heavily. She had a mechanical fall and then presented with shoulder pain x3 days Labs reviewed, potassium 3.4 LFTs normal. Hypokalemia Potassium supplements Right proximal humerus fracture , Orthopedic surgery input appreciated, outpatient surgery was recommended. Pat ient is discharged with pain medications PT OT. Tobacco abuse/dependence Smoking cessation counseling performed for 10 minutes, nicotine patches when necessary Preventative health counseling performed for 17 minutes Disposition: DC/[place]-06 HOME UNDER HOME [facility] Time spent for discharge: 33 mins Core Measure Documentation - Palliative Care Palliative Care/ Comfort Measures: Not Applicable - Core Measures Any of the following diagnoses?: none Exam - Constitutional Vitals: Temp Pulse Resp BP Pulse Ox 98.1 F 64 18 135/56 98 09/27/19 07:57 09/27/19 07:57 09/27/19 07:57 09/27/19 07:57 09/27/19 09:38 General appearance: Present: no acute distress, well-nourished - EENT Eyes: Present: PERRL ENT: hearing intact, clear oral mucosa - Neck Neck: Present: supple, normal ROM - Respiratory Respiratory effort: normal Respiratory: bilateral: CTA - Cardiovascular Heart Sounds: Present: S1 & S2. Absent: rub, click - Extremities Extremities: pulses symmetrical, No edema Peripheral Pulses: within normal limits - Abdominal General gastrointestinal: Present: soft, non-tender, non-distended, normal bowel sounds Female genitourinary: Present: normal - Integumentary Integumentary: Present: clear, warm, dry - Musculoskeletal Musculoskeletal: gait normal, strength equal bilaterally - Psychiatric Psychiatric: appropriate mood/affect, intact judgment & insight - Neurologic Neurologic: CNII-XII intact, moves all extremities Plan Follow up with: PRIMARY CARE, [Primary Care Provider] - 3-5 Days LEORA MCKEON MD [Staff Physician] - 3-5 Days Prescriptions: Ibuprofen [Motrin] 600 mg PO Q8H PRN #20 tablet PRN Reason: Pain
[2019-09-27] MEDS ORDERED: FOLIC ACID 1 MG TAB PO SCH (10:00)
[2019-09-27] MEDS ORDERED: THIAMINE 100 MG TAB PO SCH (10:00)
[2019-09-27] MEDS: MORPHINE 2 MG/1 ML INJ IV PRN (10:36)
== END 2019-09-27 13:00 | disposition home health service (06) | DRG 563 ==
LOC: ED 22:49 → 2B-ACE 09-24 08:14
PROVIDERS: ADMIT Internal Medicine; ATTEND Internal Medicine
PROC: 2W38XYZ Immobilization of Right Upper Extremity using Other Device (ICD-10-PCS; principal; 2019-09-24)
DX: S42.201A Unspecified fracture of upper end of right humerus, initial encounter for closed fracture (principal); S32.058A Other fracture of fifth lumbar vertebra, initial encounter for closed fracture; E87.2 Acidosis; R55 Syncope and collapse; F17.200 Nicotine dependence, unspecified, uncomplicated; W01.0XXA Fall on same level from slipping, tripping and stumbling without subsequent striking against object, initial encounter; Y93.89 Activity, other specified; F10.229 Alcohol dependence with intoxication, unspecified; E87.6 Hypokalemia; Y92.89 Other specified places as the place of occurrence of the external cause; Y99.8 Other external cause status; Z71.6 Tobacco abuse counseling; Z82.49 Family history of ischemic heart disease and other diseases of the circulatory system; Z88.5 Allergy status to narcotic agent; Z79.899 Other long term (current) drug therapy
CPT/HCPCS: 36415; 70450; 71250; 72125; 72131; 80053; 80320; 82010; 82140; 82550; 82553; 82962; 83690; 83735; 85025; 85610; 85730; 87040; 87086; 93005; 93010; 94760; 99406; G0378; C9113; G0480; J0360; J1650; J1885; J2060; J2270; J3411; J7030

== ENCOUNTER 2019-10-05 10:30 | Day surgery (SDC) | payer MEDICARE ==
--- NOTE | 2019-10-05 00:10 | History and Physical Report ---
History of Present Illness Date of examination: 10/05/19 Chief complaint: Right shoulder pain History of present illness: 74-year-old female who complains of right shoulder pain and swelling after a fall at home while intoxicated on 09/25/19. She was seen in our emergency department where x-rays were obtained revealing a fracture separation right proximal humerus. Medications and Allergies Allergies Allergy/AdvReac Type Severity Reaction Status Date / Time codeine Allergy Severe Anaphylaxis Verified 09/24/19 02:27 propoxyphene [From Darvon] Allergy Severe Anaphylaxis Verified 09/24/19 02:28 lidocaine Allergy Anaphylaxis Verified 09/24/19 02:28 Home Medications Medication Instructions Recorded Confirmed Last Taken Type Alendronate Sodium [Fosamax] 70 mg PO QWEEK 10/01/19 10/01/19 Unknown History Aspirin [Adult Aspirin] 81 mg PO DAILY 10/01/19 10/01/19 Unknown History Fluticasone [Flonase] 1 spray NS PRN PRN 10/01/19 10/01/19 Unknown History Meloxicam [Mobic] 7.5 mg PO PRN PRN 10/01/19 10/01/19 Unknown History Pravastatin [Pravachol] 20 mg PO QHS 10/01/19 10/01/19 Unknown History tiZANidine [Zanaflex 4mg TAB] 4 mg PO PRN PRN 10/01/19 10/01/19 Unknown History Active Meds: Active Medications Cefazolin Sodium (Ancef/Sterile Water 2 Gm/20 Ml) 2 gm IV PREOP NR Stop: 10/05/19 16:00 Physical Examination - Physical exam Narrative exam: At the right upper extremity - shoulder - moderate swelling, decreased active ROM, tender at proximal humerus, + deformity, distal n/v intact Eyes: PERRL ENT: Positive: clear oral mucosa Respiratory effort: normal Respiratory: bilateral: CTA Rhythm: regular Heart Sounds: Positive: S1 & S2 General gastrointestinal: Positive: soft, non-tender, non-distended, normal bowel sounds Integumentary: clear, warm, dry Neurologic: Positive: CNII-XII intact, moves all extremities, gait normal. Negative: focal deficits - Cervical Spine Neck pain: none Tenderness with palpation: none Full ROM: yes ROM: flexion: normal ROM: extension: normal ROM: rotation right: normal ROM: rotation left: normal ROM: lateral flexion right: normal ROM: lateral flexion left: normal - Lumbar Spine Back pain: none Tenderness with palpation: none Appearance: normal Full ROM: yes ROM: flexion: normal ROM: extension: normal ROM: rotation right: normal ROM: rotation left: normal ROM: lateral flexion right: normal ROM: lateral flexion left: normal Results - Labs Labs: All other labs normal. Assessment and Plan Displaced right proximal humerus fracture recommend closed reduction with insertion IM nail
[~2019-10-05 10:30] MED LIST: ceFAZolin/STERILE WATER 2 GM/20 ML SYRINGE IV NR
[2019-10-05] MEDS ORDERED: ONDANSETRON 4 MG/2 ML INJ IV PRN (11:18)
--- NOTE | 2019-10-05 11:19 | Anesthesia Day of Surgery ---
Anesthesia Day of Surgery - Day of Surgery Patient Examined: Yes Patient H&P Reviewed: Yes Patient is NPO: Yes
--- NOTE | 2019-10-05 11:24 | Anesthesia Consultation ---
Anesthesia Consult and Med Hx Date of service: 10/05/19 - Airway Anesthetic Teeth Evaluation: Good (Many missing) ROM Head & Neck: Adequate Mental/Hyoid Distance: Adequate Mallampati Class: Class II Intubation Access Assessment: Good - Pre-Operative Health Status ASA Pre-Surgery Classification: ASA2 Proposed Anesthetic Plan: General Nerve Block: No block-pt states allergies to local - Pulmonary Hx Smoking: Yes (1-1/2 PPD SINCE 1971) Hx Asthma: Yes (PRN INHALER) Hx Sleep Apnea: No (SHOSHANA PRE SCREEN LOW RISK) - Cardiovascular System Hx Hypertension: No (States she can climb two flights of stairs) Hx Coronary Artery Disease: No Hx Heart Attack/AMI: No Hx Angina: No Hx Cardia Arrhythmia: Yes Hx Pacemaker: No Hx Internal Defibrillator: No Hx Valvular Heart Disease: No Hx Heart Murmur: No Hx Peripheral Vascular Disease: No - Central Nervous System Hx Seizures: Yes (X1 30 YRS AGO , NEVER ON MEDS) 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
[2019-10-05] MEDS ORDERED: MORPHINE 2 MG/1 ML INJ IV ONE (11:26)
[2019-10-05] MEDS ORDERED: ACETAMINOPHEN 325 MG TAB PO ONE (11:26)
[2019-10-05] MEDS ORDERED: MAGNESIUM OXIDE 400 MG TAB PO ONE (11:26)
[2019-10-05] MEDS ORDERED: GABAPENTIN 300 MG CAP PO NR (12:00)
[2019-10-05] MEDS ORDERED: LACTATED RINGERS 1,000 ML IV SCH (12:00)
[2019-10-05] MEDS ORDERED: MIDAZOLAM 2 MG/2 ML INJ IV NR (12:00)
[2019-10-05] MEDS ORDERED: fentaNYL 100 MCG/2 ML INJ ONE (12:44)
[2019-10-05] MEDS ORDERED: ROCURONIUM 50 MG/5 ML INJ IV ONE (12:45)
[2019-10-05] MEDS ORDERED: PROPOFOL 200 MG/20 ML VIAL IV ONE (12:45)
[2019-10-05] MEDS ORDERED: HYDROmorphone 1 MG/1 ML INJ ONE (14:08)
[2019-10-05] MEDS ORDERED: LACTATED RINGERS 1,000 ML ONE (14:22)
[2019-10-05] MEDS ORDERED: dexAMETHasone 20 MG/5 ML VIAL ONE (14:36)
[2019-10-05] MEDS ORDERED: ONDANSETRON 4 MG/2 ML INJ ONE (14:36)
[2019-10-05] MEDS ORDERED: GLYCOPYRROLATE 0.4 MG/2 ML INJ ONE (14:49)
[2019-10-05] MEDS ORDERED: NEOSTIGMINE 10MG/10 ML INJ MDV ONE (14:49)
--- NOTE | 2019-10-05 15:00 | Procedure Note ---
Date of procedure: 10/05/19 Pre-op diagnosis: displaced right proximal humerus fracture Post-op diagnosis: same Procedure: Closed reduction insertion of intramedullary nail right proximal humerus Procedure Patient was brought to the OR after being given a scalene nerve block in preop erative holding patient was then transferred onto the OR table next the following induction intubation by anesthesia the patient was placed in a beachchair position C-arm fluoroscopy was used to evaluate the fracture next following this C-arm the right shoulder and arm was prepped and draped in the usual sterile manner. A timeout procedure was done to identify the patient and the correct operative site. An incision was made over the lateral border of the acromion and down distally about 2 cm this was then taken deep to the skin subcutaneous the deltoid fascia and onto the greater tuberosity again under C- arm direction an awl was used to enter the medullary canal this was followed by placement of a guidewire down across the fracture and into the distal portion of the humeral medullary canal following this a short proximal humeral nail was inserted and a antegrade fashion down across the fracture site using the targeting device and 3 screws were applied to the humeral head with the ali gnment jig in place the distal fragment was then locked with 1 screw again inserted inserted using the targeting device AP and lateral views were obtained showing good reduction of the fracture and placement of the hardware. Space following this the wounds were copiously irrigated and were repaired and a standard routine fashion the patient tolerated the procedure there were no complications he was then sent to postanesthesia recovery in a stable condition Anesthesia: GETA Surgeon: LEORA MCKEON Estimated blood loss: 50-100ml Pathology: none Condition: stable Disposition: PACU
[2019-10-05] MEDS: HYDROmorphone 1 MG/1 ML INJ IV PRN ×2 (15:23→15:32)
--- NOTE | 2019-10-05 15:51 | XRay Report ---
RIGHT SHOULDER, ONE VIEW INDICATION: HUMERAL HEAD FX. COMPARISON: None. IMPRESSION: 1 minute 27 seconds of fluoroscopy time was provided by radiology during open reduction and internal fixation of a proximal right humerus fracture. A single fluoroscopic image of the proxi mal right humerus is presented demonstrated intramedullary amanda placement secured by screws. Alignment is near-anatomic. Please correlate with the procedural report as needed. Signer Name: Andrea Ross Jr, MD Signed: 10/05/2019 3:47 PM Workstation Name: [id number]
[2019-10-05] MEDS ORDERED: oxyCODONE /ACETAMINOPHEN 5-325MG TAB PO ONE (16:31)
--- NOTE | 2019-10-05 16:59 | Post Anesthesia Evaluation ---
- Post Anesthesia Evaluation Patient Participated: Yes Airway Patent: Yes Stable Respiratory Function: Yes Nausea/Vomiting: No Temp > 96.8F: Yes Pain Manageable: Yes Adequeate Hydration: Yes Anesthesia Complications: No Block Receding Appropriately: Not Applicable Patient on Ventilator: No
[2019-10-05 18:19] VITALS: BP 132/57
== END 2019-10-05 17:55 | disposition home or self-care (01) ==
LOC: OR 10:30
PROVIDERS: ATTEND Orthopaedic Surgery
DX: S42.291A Other displaced fracture of upper end of right humerus, initial encounter for closed fracture (principal); E78.00 Pure hypercholesterolemia, unspecified; I10 Essential (primary) hypertension; M19.90 Unspecified osteoarthritis, unspecified site; F41.9 Anxiety disorder, unspecified; F17.210 Nicotine dependence, cigarettes, uncomplicated; F10.929 Alcohol use, unspecified with intoxication, unspecified; J45.909 Unspecified asthma, uncomplicated; Z79.899 Other long term (current) drug therapy; Z79.82 Long term (current) use of aspirin; Z88.5 Allergy status to narcotic agent; Z98.49 Cataract extraction status, unspecified eye; Z90.710 Acquired absence of both cervix and uterus; Z98.891 History of uterine scar from previous surgery; Z91.81 History of falling; Z98.890 Other specified postprocedural states; Z80.8 Family history of malignant neoplasm of other organs or systems; Z83.3 Family history of diabetes mellitus; Z82.49 Family history of ischemic heart disease and other diseases of the circulatory system; Z88.8 Allergy status to other drugs, medicaments and biological substances; Z86.73 Personal history of transient ischemic attack (TIA), and cerebral infarction without residual deficits; X58.XXXA Exposure to other specified factors, initial encounter; Y93.89 Activity, other specified; Y92.89 Other specified places as the place of occurrence of the external cause; Y99.8 Other external cause status
CPT/HCPCS: 24516; 73020; C1713; C1769; J0690; J1100; J1170; J2250; J2405; J2704; J2710; J3010; J7120